=== PATIENT | male | born 1945 | race Caucasian/White ===

== ENCOUNTER 2017-06-30 19:10 | Emergency (ER) | payer MEDICARE ==
--- NOTE | 2017-06-30 21:03 | XRay Report ---
FINAL REPORT PROCEDURE: XR FOOT 3+V LT TECHNIQUE: Left foot, three views HISTORY: foot injury and pain COMPARISON: No prior studies are available for comparison. FINDINGS: There are fractures through the distal 1st and 2nd phalanges, with mild displacement. First distal phalangeal fracture is mildly comminuted. No joint dislocation is seen. No radiopaque foreign body is seen. IMPRESSION: Fractures through 1st and 2nd distal phalanges
[2017-06-30] MEDS ORDERED: MOTRIN PO ONE (23:51)
[2017-07-01] MEDS ORDERED: BOOSTRIX IM ONE (02:14)
--- NOTE | 2017-07-01 02:18 | Emergency Department Report ---
ED Lower Extremity HPI - General Chief Complaint: Extremity Injury, Lower Stated Complaint: FOOT INJURY Time Seen by Provider: 07/01/17 01:46 Source: patient Mode of arrival: Ambulatory Limitations: No Limitations - History of Present Illness Initial Comments: This is a 72-year-old male nontoxic, well nourished in appearance, no acute signs of distress presents to the ED with c/o of left 1st and 2nd toe phalanges pain. Patient stated this afternoon around 3 PM he was changing a car battery which slipped and landed on his first and second toes. Patient's chest pain is aching level VIII out of 10. Patient denies any numbness, tingling, fever, chills, nausea, vomiting, chest measurements of breath. Denies any other trauma. Denies any allergies or past medical history. MD Complaint: foot injury -: This afternoon Injury: Toes: Left Place: home Severity: mild Severity scale (0 -10): 8 Improves With: nothing Worsens With: nothing Context: direct blow Associated Symptoms: swelling, able to partially bear weight, ambulatory. denies: snap/pop sensation, numbness, tingling, unable to bear weight - Related Data Previous Rx's Medication Instructions Recorded Last Taken Type Sulfamethoxazole/Trimethoprim 1 each PO BID #14 tablet 07/01/17 Unknown Rx [Bactrim DS TAB] traMADol [Ultram] 50 mg PO Q6HR PRN #12 tablet 07/01/17 Unknown Rx Allergies Allergy/AdvReac Type Severity Reaction Status Date / Time No Known Allergies Allergy Verified 06/30/17 19:39 ED Review of Systems ROS: Stated complaint: FOOT INJURY Other details as noted in HPI Constitutional: denies: chills, fever Eyes: denies: eye pain, eye discharge, vision change ENT: denies: ear pain, throat pain Respiratory: denies: cough, shortness of breath, wheezing Cardiovascular: denies: chest pain, palpitations Endocrine: no symptoms reported Gastrointestinal: denies: abdominal pain, nausea, diarrhea Genitourinary: denies: urgency, dysuria Musculoskeletal: denies: back pain, joint swelling, arthralgia Skin: denies: rash, lesions Neurological: denies: headache, weakness, paresthesias Psychiatric: denies: anxiety, depression Hematological/Lymphatic: denies: easy bleeding, easy bruising ED Past Medical Hx - Past Medical History Previous Medical History?: Yes - Surgical History Past Surgical History?: Yes Additional Surgical History: hernia - Social History Smoking Status: Never Smoker Substance Use Type: None - Medications Home Medications: Home Medications Medication Instructions Recorded Confirmed Last Taken Type Sulfamethoxazole/Trimethoprim 1 each PO BID #14 tablet 07/01/17 Unknown Rx [Bactrim DS TAB] traMADol [Ultram] 50 mg PO Q6HR PRN #12 tablet 07/01/17 Unknown Rx ED Physical Exam - General Limitations: No Limitations General appearance: alert, in no apparent distress - Head Head exam: Present: atraumatic, normocephalic - Eye Eye exam: Present: normal appearance - ENT ENT exam: Present: normal exam, normal orophraynx, mucous membranes moist, TM's normal bilaterally, normal external ear exam - Neck Neck exam: Present: normal inspection, full ROM. Absent: tenderness, meningismus, lymphadenopathy, thyromegaly - Respiratory Respiratory exam: Present: normal lung sounds bilaterally. Absent: respiratory distress, rales, rhonchi, stridor, chest wall tenderness, accessory muscle use, decreased breath sounds, prolonged expiratory - Cardiovascular Cardiovascular Exam: Present: regular rate, normal rhythm, normal heart sounds. Absent: bradycardia, tachycardia, irregular rhythm, systolic murmur, diastolic murmur, rubs, gallop - GI/Abdominal GI/Abdominal exam: Present: soft, normal bowel sounds. Absent: distended, tenderness, guarding, rebound, rigid, diminished bowel sounds - Rectal Rectal exam: Present: deferred - Extremities Exam Extremities exam: Present: normal inspection, full ROM, tenderness, normal capillary refill. Absent: pedal edema, joint swelling, calf tenderness - Expanded Lower Extremity Exam Left Hip exam: Present: normal inspection, full ROM Upper Leg exam: Present: normal inspection, full ROM Knee exam: Present: normal inspection, full ROM Lower Leg exam: Present: normal inspection, full ROM Ankle exam: Present: normal inspection, full ROM Foot/Toe exam: Present: normal inspection, full ROM, tenderness, swelling, abrasion, ecchymosis. Absent: laceration, deformity, crepidus, dislocation, erythema, amputation, puncture wound, foreign body, calcaneal tenderness, tenderness at base of 5th metatarsal, nail avulsion, subungual hematoma Neuro vascular tendon exam: Present: no vascular compromise. Absent: pulse deficit, abnormal cap refill, motor deficit, sensory deficit, tendon deficit, extremity cold to touch, pallor, abnormal 2-point discrimination, decreased fine /light touch, foot drop, peroneal nerve deficit, significant pain with passive ROM of distal joint Gait: Positive: observed and limited by pain 1 - trauma - Back Exam Back exam: Present: normal inspection, full ROM. Absent: tenderness, CVA tenderness (R), CVA tenderness (L), muscle spasm, paraspinal tenderness, vertebral tenderness, rash noted - Neurological Exam Neurological exam: Present: alert, oriented X3, CN II-XII intact, normal gait, reflexes normal - Psychiatric Psychiatric exam: Present: normal affect, normal mood - Skin Skin exam: Present: warm, dry, intact, normal color. Absent: rash ED Course Vital Signs 06/30/17 06/30/17 19:39 23:53 Temperature 98.2 F Pulse Rate 89 Respiratory 16 18 Rate Blood Pressure 145/93 O2 Sat by Pulse 96 Oximetry - Reevaluation(s) Reevaluation #1: 07/01/17 02:30 Patient is speaking in full sentences with no signs of distress noted. ED Lower Extremity MDM - Medical Decision Making This is a 72-year-old male that presents with left 1st and 2nd distal phalanges fracture. He is stable and was examined by me. Patient received Motrin in the ED for pain. X-ray has been obtained and per the radiologist with 1st and 2nd distal phalanges fractures. Patient notified of x-ray results were noted by the patient. Posterior left foot splint and has been performed. Patient was instructed not to bear weight. Patient received a walker at discharge. Post- splint assessment; there is neurovascular intact with normal capillary refill less than 2 seconds. Patient has normal sensation and is able to move toes. Patient received ice the extremity. Patient instructed to rice therapy. Patient be treated with Ultram and Bactrim for empirically infection due to abrasions. He was instructd not to operate any machinery while taking Ultram due to drowsiness. patient received a tetanus booster in the ED. Patient was instructed to rice therapy. Patient was instructed Follow-up with a orthopedic doctor in 3-5 days or if symptoms worsen and continue return to emergency room as soon as possible. At time time of discharge, the patient does not seem toxic or ill in appearance. No acute signs of distress noted. Patient agrees to discharge treatment plan of care. No further questions noted by the patient. Critical care attestation.: If time is entered above; I have spent that time in minutes in the direct care of this critically ill patient, excluding procedure time. ED Disposition Clinical Impression: Fracture of one or more phalanges of foot Qualifiers: Encounter type: initial encounter Toe: great toe Fracture type: closed Phalanx : distal Fracture alignment: nondisplaced Laterality: left Qualified Code(s): S92.425A - Nondisplaced fracture of distal phalanx of left great toe, initial encounter for closed fracture Disposition: TO HOME OR SELFCARE Is pt being admited?: No Does the pt Need Aspirin: No Condition: Stable Instructions: Toe Fracture (ED), Splint Care (ED), RICE Therapy (ED), Tramadol (By mouth), Sulfamethoxazole/Trimethoprim (By mouth) Additional Instructions: Follow-up with a orthopedic doctor in 3-5 days or if symptoms worsen and continue return to emergency room as soon as possible. Rest, elevate, and ice extremity Do not operate any machinery while taking Ultram due to drowsiness Prescriptions: Sulfamethoxazole/Trimethoprim [Bactrim DS TAB] 1 each PO BID #14 tablet traMADol [Ultram] 50 mg PO Q6HR PRN #12 tablet PRN Reason: Pain Referrals: COTY BOSWELL MD [Primary Care Provider] - 3-5 Days SARAHI ESPAÑA MD [Staff Physician] - 3-5 Days [facility] [Outside] - 3-5 Days [facility] [Outside] - 3-5 Days PRIMARY CAREMD [Referring] - 3-5 Days Forms: Work/School Release Form(ED)
[2017-07-01 03:52] VITALS: BP 151/92
== END 2017-07-01 03:50 | disposition home or self-care (01) ==
LOC: ED 19:10
DX: S92.425A Nondisplaced fracture of distal phalanx of left great toe, initial encounter for closed fracture (principal); W01.0XXA Fall on same level from slipping, tripping and stumbling without subsequent striking against object, initial encounter; Y93.89 Activity, other specified; Y92.89 Other specified places as the place of occurrence of the external cause; Y99.8 Other external cause status
CPT/HCPCS: 90471; 90715